=== PATIENT | female | born 1980 | race Caucasian/White ===

== ENCOUNTER 2016-12-12 11:56 | Day surgery (SDC) | payer BC ==
[~2016-12-12] VITALS: Ht 175.3 cm; Wt 63.5 kg
[~2016-12-12 11:56] MED LIST: BUPIVACAINE/PF-EPI 0.5% 1:200K ONE; INDOCYANINE GREEN 25 MG VIAL ONE
[2016-12-12 12:21] VITALS: BP 122/69
[2016-12-12] MEDS ORDERED: LACTATED RINGERS 1,000 ML IV SCH (12:24)
[2016-12-12] MEDS ORDERED: DENIES (12:24)
[2016-12-12] MEDS ORDERED: LIDOCAINE 1%, 2ML ONE (12:27)
[2016-12-12 12:30] LABS: HCG UR OBC PASS
[2016-12-12] MEDS ORDERED: FENTANYL PF 250 MCG/5ML ONE (12:38)
[2016-12-12] MEDS ORDERED: MIDAZOLAM 1 MG/ML, 2ML ONE (12:39)
[2016-12-12 12:50] LABS: HEMOGLOBIN 14.2 g/dL (11.7-16.4)
[2016-12-12] MEDS ORDERED: EPHEDRINE 50 MG/ML, 1ML ONE (12:50)
[2016-12-12] MEDS ORDERED: SUCCINYLCHOLINE 20 MG/ML, 10ML ONE (12:50)
[2016-12-12] MEDS ORDERED: KETOROLAC 30 MG/1 ML ONE (12:50)
[2016-12-12] MEDS ORDERED: PROPOFOL 10 MG/ML, 20ML ONE (12:50)
[2016-12-12] MEDS ORDERED: CEFAZOLIN 1,000 MG ONE (12:50)
[2016-12-12] MEDS ORDERED: ROCURONIUM 10 MG/ML ONE (12:50)
[2016-12-12] MEDS ORDERED: ESMOLOL 100 MG/10 ML ONE (12:50)
[2016-12-12] MEDS ORDERED: GLYCOPYRROLATE 0.2MG/1ML ONE (12:50)
[2016-12-12] MEDS ORDERED: ONDANSETRON 2MG/ML, 2ML ONE (12:50)
[2016-12-12] MEDS ORDERED: NEOSTIGMINE 1 MG/ML, 10ML ONE (12:50)
[2016-12-12] MEDS ORDERED: DEXAMETHASONE 4 MG/ML, 1ML ONE (12:50)
[2016-12-12] MEDS ORDERED: INDOCYANINE GREEN 25 MG VIAL IVPush ONE (13:00)
[2016-12-12 13:04] LABS: BLOOD UREA NITROGEN 11 mg/dL (7-18)
[2016-12-12] MEDS ORDERED: FENTANYL PF 100 MCG/2ML IV PRN (13:30)
[2016-12-12] MEDS ORDERED: METOCLOPRAMIDE 5 MG/ML, 2ML IV PRN (13:30)
[2016-12-12] MEDS ORDERED: OXYcodone 5 MG/5 ML ORAL.SOL UDC PO PRN (13:30)
[2016-12-12] MEDS ORDERED: PROMETHAZINE 25 MG/ML, 1ML IV PRN (13:30)
[2016-12-12] MEDS ORDERED: MIDAZOLAM 1 MG/ML, 2ML IV PRN (13:30)
[2016-12-12] MEDS ORDERED: hydrALAzine 20 MG/ML, 1ML IV PRN (13:30)
[2016-12-12] MEDS ORDERED: MEPERIDINE/PF 25MG/0.5ML IVPush PRN (13:30)
[2016-12-12] MEDS ORDERED: LABETALOL 5MG/ML, 20ML IV PRN (13:30)
[2016-12-12] MEDS ORDERED: ONDANSETRON 2MG/ML, 2ML IVPush PRN ×2 (13:30→14:00)
[2016-12-12] MEDS ORDERED: ACETAMINOPHEN 325 MG TABLET PO PRN (13:30)
[2016-12-12] MEDS ORDERED: morphine SULFATE 10 MG/ML, 1ML IVPush PRN (14:00)
[2016-12-12] MEDS ORDERED: KETOROLAC 30 MG/1 ML IVPush PRN (14:00)
[2016-12-12] MEDS ORDERED: ACETAMINOPHEN 650 MG/20.3 ML UDC ONE (14:18)
[2016-12-12] MEDS ORDERED: METOCLOPRAMIDE 5 MG/ML, 2ML ONE (14:19)
[2016-12-12] MEDS ORDERED: OXYcodone 5 MG/5 ML ORAL.SOL UDC ONE (14:19)
[2016-12-12] MEDS ORDERED: ACETAMINOPHEN 325 MG TABLET ONE (14:19)
[2016-12-12] MEDS ORDERED: PROMETHAZINE 25 MG/ML, 1ML ONE (14:19)
[2016-12-12] MEDS ORDERED: HYDROmorphone 2 MG/ML, 1ML ONE (14:25)
[2016-12-12] MEDS: HYDROmorphone 1 MG/ML, 1ML IV PRN ×4 (14:26→15:16)
[2016-12-12] MEDS ORDERED: DIPHENHYDRAMINE 25 MG CAPSULE PO STA (18:22)
[2016-12-12] MEDS ORDERED: DIPHENHYDRAMINE 25 MG CAPSULE ONE (18:24)
== END 2016-12-12 19:15 | disposition home or self-care (01) ==
LOC: OUT 11:56
PROVIDERS: ATTEND Surgery
DX: K80.10 Calculus of gallbladder with chronic cholecystitis without obstruction (principal); K66.0 Peritoneal adhesions (postprocedural) (postinfection); Z82.49 Family history of ischemic heart disease and other diseases of the circulatory system; Z80.8 Family history of malignant neoplasm of other organs or systems
CPT/HCPCS: 36415; 47562; 80048; 81025; 85025; 88304; A4649; J0330; J0690; J1100; J1170; J1885; J2250; J2405; J2550; J2704; J2710; J2765; J3010; J7120; Q0163; S2900; J3490